=== PATIENT | male | born 1940 | race Caucasian/White ===

== ENCOUNTER 2018-03-24 09:59 | Observation (INO) ==
[2018-03-24] MEDS ORDERED: Isovue-370 500 ML INFUS..BTL IV ONE (10:41)
[2018-03-24] MEDS ORDERED: 0.9 % Sodium Chloride 1,000 ML IVC ONE (10:41)
--- NOTE | 2018-03-24 10:45 | Emergency Department Note ---
Disposition Clinical Impression: Hematuria Qualifiers: Hematuria type: unspecified type Qualified Code(s): R31.9 - Hematuria, unspecified Disposition: Still a Patient Referrals: Charanjit Hong DO [Primary Care Provider] - Forms: ED Satisfaction Letter Time of Disposition: 11:43 Male Urogenital HPI - General Chief complaint: ED Urogenital-Male Stated complaint: "blood in urine" Time Seen by Provider: 03/24/18 10:15 Source: patient Limitations: no limitations Nursing Notes Reviewed: Yes Vital Signs Reviewed: Yes - History of Present Illness HPI Narrative: Alert and oriented nontoxic-appearing 77-year-old male presents for evaluation of hematuria for the past one week or so. He states that it originally started as "tea colored urine". He did see his primary care provider a couple of days ago and was referred to urologist however he states that he cannot be seen for another 3 weeks. The patient states "I do not think I need to wait that long". He does state that the hematuria is intervally improving. He denies any associated fever, chills, nausea, vomiting, abdominal pain, diarrhea, constipation, or blood in stool. Pt Subjective Complaint: other (Hematuria) Onset (ago): day(s) Duration: other (Improving) Improves with: none Worsens with: none Reports: denies other symptoms - Related Data Home Medications Medication Instructions Recorded Confirmed Desonide 15 gm TP BID PRN 01/23/16 01/23/16 Furosemide [Lasix] 80 mg PO DAILY 01/23/16 01/23/16 Gabapentin [Neurontin] 300 mg PO 1-2XD 01/23/16 01/23/16 Lansoprazole [Prevacid] 30 mg PO DAILY 01/23/16 01/23/16 Lisinopril [Zestril] 40 mg PO DAILY 01/23/16 01/23/16 Metoprolol XL (24 HR) Succ [Toprol 25 mg PO DAILY 01/23/16 01/23/16 Xl] Multivitamin [Multivitamins] 1 each PO DAILY 01/23/16 01/23/16 Potassium Chloride [Klor-Con 10 meq PO BID 01/23/16 01/23/16 Sprinkle] Pravastatin Sodium [Pravachol] 40 mg PO DAILY 01/23/16 01/23/16 Tamsulosin HCl [Flomax] 0.4 mg PO DAILY 01/23/16 01/23/16 Tiotropium Br/Olodaterol HCl 2 puff IH BID 01/23/16 01/23/16 [Stiolto Respimat Inhal [place]] [employer] 10 mg PO DAILY 01/23/16 01/23/16 traMADol [Ultram] 50 mg PO Q6HR PRN 01/23/16 01/23/16 Allergies Allergy/AdvReac Type Severity Reaction Status Date / Time ibuprofen [From Motrin] Allergy Swelling Verified 03/24/18 10:04 of Lip/Tongue/Throat Sulfa (Sulfonamide Allergy Anaphylaxis Verified 03/24/18 10:04 Antibiotics) All systems ED: reviewed and negative except as stated. Constitutional: Denies: fever, chills, weakness, weight change Eyes: Denies: eye pain, eye discharge, vision change ENT ED: Denies: ear pain, throat pain, dental pain, hearing loss, epistaxis, congestion, dysphagia Cardiovascular: Denies: chest pain, palpitations, dyspnea on exertion, edema, syncope Respiratory: Denies: cough, dyspnea, wheezes, hemoptysis, stridor Gastrointestinal: Denies: abdominal pain, nausea, vomiting, diarrhea, constipation, hematemesis, melena, hematochezia Genitourinary: Reports: as per HPI, hematuria. Denies: urgency, dysuria, frequency Musculoskeletal: Denies: back pain, neck pain, arthralgia, myalgia Integumentary: Denies: rash, abrasion, lesions Neurological: Denies: headache, weakness, numbness, paresthesias, confusion, abnormal gait, vertigo Psychiatric: Denies: anxiety, depression, suicidal thoughts, homicidal thoughts , auditory hallucinations, visual hallucinations Endocrine: Denies: fatigue Hematological/Lymphatic: Denies: easy bleeding, easy bruising Allergic/Immunologic: Denies: facial swelling, urticaria Past Medical History - Past Medical History Attestation: Yes The following information was validated with the patient. Source: patient, nursing notes reviewed Medical history: Reports: asthma, atrial fibrillation, cancer, COPD, coronary artery disease, GI bleed, hyperlipidemia, hypertension, valvular heart disease Psychiatric history: Reports: no psych history - Social History Smoking Status: Former smoker Smokeless Tobacco Status: No Alcohol use: Reports: none Drug use: Reports: none Physical Exam - General Limitations: no limitations General appearance: alert - Head Head exam: normal inspection - Eye Eye exam: Present: normal appearance. Absent: nystagmus - ENT ENT exam: mucous membranes moist - Neck Neck exam: Present: normal inspection, full ROM, trachea midline - Chest Chest inspection: Present: normal inspection, symmetric chest wall rise - Respiratory Respiratory exam: Present: normal lung sounds bilaterally - Cardiovascular Cardiovascular exam: Present: regular rate, normal rhythm, normal heart sounds - Abdominal Exam Abdominal Exam: Present: soft, Non-Tender, normal bowel sounds - Neurological Exam Neurological exam: Present: alert, oriented X3, normal gait - Psychiatric Psychiatric exam: Present: normal affect, normal mood - Skin Skin exam: Present: warm, dry, intact, normal color Course Vital Signs Temperature 98 F 03/24/18 10:05 Pulse Rate 87 03/24/18 10:05 Respiratory Rate 20 03/24/18 10:05 Blood Pressure 122/78 03/24/18 10:05 O2 Sat by Pulse Oximetry 98 03/24/18 10:05 Temperature 98 F 03/24/18 10:05 Pulse Rate 68 03/24/18 11:39 Respiratory Rate 18 03/24/18 11:39 Blood Pressure 133/68 03/24/18 11:39 O2 Sat by Pulse Oximetry 95 03/24/18 11:39 Oxygen Delivery Oxygen Delivery Room Air Urogenital-Male - Medical Records Medical records reviewed: Yes I reviewed the patient's medical records. - Lab Data Result diagrams: 03/24/18 10:56 03/24/18 10:56 Lab Results 03/24/18 03/24/18 03/24/18 Range/Units 10:56 10:56 10:56 WBC 6.0 (4.3-11.1) K/mcL RBC 4.06 L (4.19-5.50) M/mcL Hgb 13.4 (12.9-16.9) g/dL Hct 39.0 (37.5-50.1) % MCV 96.1 (83.0-100.0) fL MCH 33.0 (28.0-33.3) pg MCHC 34.4 (31.6-35.5) g/dL RDW 13.3 (11.5-14.5) % Plt Count 191 (140-400) K/mcL MPV 10.0 (9.4-12.4) fL Immature Gran % 0.3 (0-4) % Seg Neutrophils % 73.2 % Lymphocytes % 15.0 % Monocytes % 8.0 % Eosinophils % 3.2 % Basophils % 0.3 % Neutrophils # 4.4 (1.6-8.9) K/mcL Lymphocytes # 0.9 (0.6-4.6) K/mcL Monocytes # 0.5 (0.0-1.3) K/mcL Eosinophils # 0.2 (0.0-0.6) K/mcL Basophils # 0.0 (0.0-0.2) K/mcL PT 11.6 (9.4-12.1) Seconds INR 1.1 APTT 34.6 (26.0-36.0) Seconds Sodium 138 (136-145) mEq/L Potassium 4.3 (3.5-5.1) mEq/L Chloride 102 (98-107) mEq/L Carbon Dioxide 29 (23-29) mEq/L BUN 21 (8-23) mg/dL Creatinine 1.82 H (0.70-1.30) mg/dL Est GFR ( Amer) 44 L (> 60) Est GFR (Non-Af Amer) 36 L (> 60) BUN/Creatinine Ratio 12 (6-26) Glucose 110 H (70-105) mg/dL Calculated Osmolality 290 (280-300) Lactic Acid (0.5-2.2) mmol/L Calcium 9.6 (8.6-10.3) mg/dL Total Bilirubin 0.7 (0.3-1.0) mg/dL Direct Bilirubin 0.2 (0.0-0.2) mg/dL Indirect Bilirubin 0.5 (0.0-1.2) mg/dL AST 14 (13-39) Units/L ALT 9 (7-52) Units/L Alkaline Phosphatase 74 (34-104) Units/L Troponin I < 0.03 (< 0.04) ng/mL Serum Total Protein 7.4 (6.4-8.9) g/dL Albumin 4.3 (3.5-5.7) g/dL Globulin 3.1 (2.4-3.5) g/dL Albumin/Globulin Ratio 1.4 (1.1-2.2) Amylase 22 L (29-103) Units/L Lipase 33 (11-82) Units/L Urine Color (Yellow) Urine Clarity (Clear) Urine pH (5.0-8.0) pH Units Ur Specific [place] (1.010-1.025) Urine Protein (Neg-Trace) mg/dL Urine Glucose (UA) (Normal) mg/dL Urine Ketones (Negative) mg/dL Urine Blood (Negative) Urine Nitrite (Negative) Urine Bilirubin (Negative) Urine Urobilinogen (Normal) mg/dL Ur Leukocyte Esterase (Negative) Urine Microscopic RBC (0-3) per hpf Urine Microscopic WBC (0-3) per hpf Ur Squamous Epith Cells (None-Few) per lpf Urine Bacteria (None-Few) per hpf Hyaline Casts (None-Few) per lpf Ur Culture Indicated? (NO) 03/24/18 03/24/18 Range/Units 10:56 11:15 WBC (4.3-11.1) K/mcL RBC (4.19-5.50) M/mcL Hgb (12.9-16.9) g/dL Hct (37.5-50.1) % MCV (83.0-100.0) fL MCH (28.0-33.3) pg MCHC (31.6-35.5) g/dL RDW (11.5-14.5) % Plt Count (140-400) K/mcL MPV (9.4-12.4) fL Immature Gran % (0-4) % Seg Neutrophils % % Lymphocytes % % Monocytes % % Eosinophils % % Basophils % % Neutrophils # (1.6-8.9) K/mcL Lymphocytes # (0.6-4.6) K/mcL Monocytes # (0.0-1.3) K/mcL Eosinophils # (0.0-0.6) K/mcL Basophils # (0.0-0.2) K/mcL PT (9.4-12.1) Seconds INR APTT (26.0-36.0) Seconds Sodium (136-145) mEq/L Potassium (3.5-5.1) mEq/L Chloride (98-107) mEq/L Carbon Dioxide (23-29) mEq/L BUN (8-23) mg/dL Creatinine (0.70-1.30) mg/dL Est GFR ( Amer) (> 60) Est GFR (Non-Af Amer) (> 60) BUN/Creatinine Ratio (6-26) Glucose (70-105) mg/dL Calculated Osmolality (280-300) Lactic Acid 0.9 (0.5-2.2) mmol/L Calcium (8.6-10.3) mg/dL Total Bilirubin (0.3-1.0) mg/dL Direct Bilirubin (0.0-0.2) mg/dL Indirect Bilirubin (0.0-1.2) mg/dL AST (13-39) Units/L ALT (7-52) Units/L Alkaline Phosphatase (34-104) Units/L Troponin I (< 0.04) ng/mL Serum Total Protein (6.4-8.9) g/dL Albumin (3.5-5.7) g/dL Globulin (2.4-3.5) g/dL Albumin/Globulin Ratio (1.1-2.2) Amylase (29-103) Units/L Lipase (11-82) Units/L Urine Color Yellow (Yellow) Urine Clarity Clear (Clear) Urine pH 7.0 (5.0-8.0) pH Units Ur Specific [place] 1.009 L (1.010-1.025) Urine Protein Negative (Neg-Trace) mg/dL Urine Glucose (UA) Normal (Normal) mg/dL Urine Ketones Negative (Negative) mg/dL Urine Blood Large H (Negative) Urine Nitrite Negative (Negative) Urine Bilirubin Negative (Negative) Urine Urobilinogen Normal (Normal) mg/dL Ur Leukocyte Esterase Negative (Negative) Urine Microscopic RBC TNTC H (0-3) per hpf Urine Microscopic WBC 0-3 (0-3) per hpf Ur Squamous Epith Cells Few (None-Few) per lpf Urine Bacteria None Seen (None-Few) per hpf Hyaline Casts None Seen (None-Few) per lpf Ur Culture Indicated? NO (NO) S.B.A.R. - S.B.A.R. Situation: Demographics, MOA Background: Presenting Complaint, Relevant PMH, Meds, & Allergies Assessment: Vital Signs, Course and respsone to treatment, Exam Concerns, Patient/Family Expectation, Pertinant Lab Results, Outstanding Labs Recommendation: Barrier(s) to disposition, Recommendation based on pending studies, treatments, or consults S.B.A.R. Report Given to: Dr. Kassidy Chavez Repor Time: 11:42 Attestation Statement - Attestation Attestation: For this encounter, I have reviewed the ENFORCEMENT MANAGER or PA documentation, treatment plan, and medical decision making; and I have had face to face time with this patient. accepted sign out from the ENFORCEMENT MANAGER, this is 77 year old male with history of hematuria since Friday and has a followup wiht Dr. oconnell on April 17. He states that it is getting wrose, denies abdominal pain, vomitting, nausea, or fevers. He states that he does not have BPH or blood clots and that the urine is more tea colored. PAtinet denies flank pain. I will obtian ABCT and labs for evlauation and then anna consult urology if there is an emergent indications otherwise I will call scheduling to see if we can move his appoitnment sooner.
[2018-03-24 11:13] LABS: Basophils % 0.3 %; Eosinophils # 0.2 K/mcL (0.0-0.6); Eosinophils % 3.2 %; Hemoglobin 13.4 g/dL (12.9-16.9); Immature Granulocytes % 0.3 % (0-4); Lymphocytes # 0.9 K/mcL (0.6-4.6); Mean Corpuscular HGB Conc 34.4 g/dL (31.6-35.5); Mean Corpuscular Volume 96.1 fL (83.0-100.0); Monocytes # 0.5 K/mcL (0.0-1.3); Neutrophils # 4.4 K/mcL (1.6-8.9); Platelet Count 191 K/mcL (140-400); Red Blood Count 4.06 M/mcL (4.19-5.50); Red Cell Distribution Width 13.3 % (11.5-14.5); Segmented Neutrophils % 73.2 %
[2018-03-24 11:20] LABS: INR 1.1; Prothrombin Time 11.6 Seconds (9.4-12.1)
[2018-03-24 11:23] LABS: Activated Partial Thrombo Time 34.6 Seconds (26.0-36.0)
[2018-03-24 11:27] LABS: Bilirubin,Urine Negative (Negative); Blood,Urine Large (Negative); Clarity,Urine Clear (Clear); Color,Urine Yellow (Yellow); Glucose,Urine (UA) Normal (Normal); Ketones,Urine Negative (Negative); Leukocyte Esterase,Urine Negative (Negative); Nitrite,Urine Negative (Negative); Protein,Urine Negative (Neg-Trace); Specific Gravity,Urine 1.009 (1.010-1.025); Urobilinogen,Urine Normal (Normal)
[2018-03-24 11:30] LABS: Bacteria,Urine None Seen per hpf (None-Few); Hyaline Casts,Urine None Seen per lpf (None-Few); RBC,Urine TNTC per hpf (0-3); Squamous Epithelial Cell,Urine Few per lpf (None-Few); WBC,Urine 0-3 per hpf (0-3)
[2018-03-24 11:33] LABS: Troponin I < 0.03 ng/mL (< 0.04)
[2018-03-24 11:34] LABS: Alanine Aminotransferase 9 Units/L (7-52); Albumin 4.3 g/dL (3.5-5.7); Albumin/Globulin Ratio 1.4 (1.1-2.2); Alkaline Phosphatase 74 Units/L (34-104); Amylase 22 Units/L (29-103); Aspartate Amino Transferase 14 Units/L (13-39); BUN/Creatinine Ratio 12 (6-26); Bilirubin,Direct 0.2 mg/dL (0.0-0.2); Bilirubin,Indirect 0.5 mg/dL (0.0-1.2); Bilirubin,Total 0.7 mg/dL (0.3-1.0); Blood Urea Nitrogen 21 mg/dL (8-23); Calcium 9.6 mg/dL (8.6-10.3); Carbon Dioxide 29 mEq/L (23-29); Chloride 102 mEq/L (98-107); Globulin 3.1 g/dL (2.4-3.5); Glucose 110 mg/dL (70-105); Lipase 33 Units/L (11-82); Osmolality,Calculated 290 (280-300); Potassium 4.3 mEq/L (3.5-5.1); Sodium 138 mEq/L (136-145); Total Protein 7.4 g/dL (6.4-8.9); eGFR For African Americans 44 (> 60); eGFR For Non-African Americans 36 (> 60)
[2018-03-24] MEDS ORDERED: traMADol 50 MG TABLET PO PRN (13:06)
[2018-03-24] MEDS ORDERED: Naloxone 0.4 MG/ML INJ IVP PRN (13:08)
--- NOTE | 2018-03-24 13:13 | Internal Med History&Physical ---
Date of Encounter: 03/24/18 Time of Encounter: 13:10 Internal Medicine - H&P: HPI Chief complaint: Gross hematuria History of present illness: Mr. Brock is a 77 year old male with a history of orthopedic surgery with 2. Replacement, spinal surgeries with rods and screws, CABG at [facility] a few years ago, status post pacer in [place] who presents with gross hematuria since Friday. He denies having any prior episodes of hematuria but on Friday developed brown urine output without clots. Visually he described it looking like sweet tea. He had persistent hematuria output that is painless since Friday but his urine has started to clear up this morning. He denies any systemic symptoms or any lower urinary tract symptoms to suggest an active infection that is precipitating his presentation. CT/CT abd pelvis wo no iv no oral IMPRESSION: 2 x 3 mm stone distal left ureter 1-2 cm proximal to the left UVJ. However, there is no significant hydronephrosis or hydroureter. At least 3 small additional nonobstructing stones noted within the left kidney. 4.8 cm pedunculated cyst lower pole right kidney slightly increased in size from 2010 exam. Mild distal small bowel distention with some air-fluid levels. This may represent nonobstructive ileus possibly related to left ureteral stone. Enteritis cannot be excluded. Past Med Surg Social Fam HX - Past Medical History Medical history: asthma, atrial fibrillation, cancer, COPD, coronary artery disease, GI bleed, hyperlipidemia, hypertension, valvular heart disease Additional medical history: SKIN CA. LUMBAR STENOSIS. CAROTID STENOSIS Psychiatric history: no psych history - Past Surgical History Additional surgical history: BILAT HIP SURGERY. BACK SURGERY X3. CARPEL TUNNEL. MITRAL VALVE REPAIR - Social History Smoking Status: Former smoker Smokeless Tobacco Status: No Alcohol use: none Drug use: none Internal Medicine - H&P: Meds Furosemide [Lasix] 80 mg PO DAILY 01/23/16 [History] Lansoprazole [Prevacid] 30 mg PO DAILY 01/23/16 [History] Metoprolol XL (24 HR) Succ [Toprol Xl] 25 mg PO BID 01/23/16 [History] Multivitamin [Multivitamins] 1 each PO DAILY 01/23/16 [History] Potassium Chloride [Klor-Con Sprinkle] 10 meq PO BID 01/23/16 [History] Tamsulosin HCl [Flomax] 0.4 mg PO DAILY 01/23/16 [History] traMADol [Ultram] 50 mg PO Q6HR PRN 01/23/16 [History] Albuterol Sulfate [Proair Hfa] 2 puff IH Q4-6H PRN 03/24/18 [History] Atorvastatin [Lipitor] 10 mg PO HS 03/24/18 [History] Metoprolol Succinate [Toprol Xl] 50 mg PO BID 03/24/18 [History] 3 Allergy/AdvReac Type Severity Reaction Status Date / Time ibuprofen [From Motrin] Allergy Swelling Verified 03/24/18 10:04 of Lip/Tongue/Throat Sulfa (Sulfonamide Allergy Anaphylaxis Verified 03/24/18 10:04 Antibiotics) All Systems PM: A 10-system review of systems was performed and is negative for pertinent findings except as documented above in the HPI. Review of systems: ROS 14 point review of systems reviewed as best as possible given presentation. Pertinent positive or negative as per HPI or otherwise reviewed as negative - Constitutional Vitals: Temp Pulse Resp BP Pulse Ox 98 F 107 18 153/78 97 03/24/18 10:05 03/24/18 12:43 03/24/18 12:43 03/24/18 12:43 03/24/18 12:43 Exam: General - AAO x 3 Psych - Appropriate affect/speech. No agitation Eyes - LUCILA. Eye lids intact. No scleral icterus Neuro - No gross peripheral or central neuro deficits on inspection Heart - Sinus. RRR. S1 and S2 present. No added HS/murmurs appreciated. No elevated JVD appreciated. Lung - Adequate air entry b/l, No crackles/wheezes appreciated GI - Soft, non-tender. No hepatosplenomegaly/ascites. BS+ - No CVA/suprapubic tenderness or palpable bladder distension Skin - Intact. No rash/petechiae/ecchymosis. Warm extremities Internal Med - H&P Results - Labs CBC & Chem 7: 03/24/18 10:56 03/24/18 10:56 Labs: Short CBC 03/24/18 Range/Units 10:56 WBC 6.0 (4.3-11.1) K/mcL Hgb 13.4 (12.9-16.9) g/dL Hct 39.0 (37.5-50.1) % Plt Count 191 (140-400) K/mcL Neutrophils # 4.4 (1.6-8.9) K/mcL BMP 03/24/18 10:56 Sodium 138 Potassium 4.3 Chloride 102 Carbon Dioxide 29 BUN 21 Creatinine 1.82 H Glucose 110 H Calcium 9.6 Cardiac Enzymes 03/24/18 Range/Units 10:56 Troponin I < 0.03 (< 0.04) ng/mL Liver Function 03/24/18 Range/Units 10:56 Total Bilirubin 0.7 (0.3-1.0) mg/dL Direct Bilirubin 0.2 (0.0-0.2) mg/dL AST 14 (13-39) Units/L ALT 9 (7-52) Units/L Alkaline Phosphatase 74 (34-104) Units/L Albumin 4.3 (3.5-5.7) g/dL Urine 03/24/18 Range/Units 11:15 Urine Color Yellow (Yellow) Urine Clarity Clear (Clear) Urine pH 7.0 (5.0-8.0) pH Units Ur Specific [place] 1.009 L (1.010-1.025) Urine Protein Negative (Neg-Trace) mg/dL Urine Glucose (UA) Normal (Normal) mg/dL - Impressions ITS Impressions Abdomen/Pelvis CT 03/24/18 10:41 IMPRESSION: 2 x 3 mm stone distal left ureter 1-2 cm proximal to the left UVJ. However, there is no significant hydronephrosis or hydroureter. At least 3 small additional nonobstructing stones noted within the left kidney. 4.8 cm pedunculated cyst lower pole right kidney slightly increased in size from 2010 exam. Mild distal small bowel distention with some air-fluid levels. This may represent nonobstructive ileus possibly related to left ureteral stone. Enteritis cannot be excluded. D/ / Ash Frederick MD / Ash Frederick MD Interpreting Provider: Ash Frederick MD - Assessment and plan (1) Hematuria Current Visit: Yes Status: Acute Assessment and plan: ED discussed case with urology Dr. Chang who will consult Urinalysis looks bland with no evidence of infection CT scan with incidental small stones. Doubtful that this is symptomatic. Noted renal cyst of right kidney that has slightly increased in size Further management pending neurology evaluation. Possible interval invasive testing No overt clots to suggest need for CBI. 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 (4) CKD (chronic kidney disease) stage 4, GFR 15-29 ml/min Current Visit: Yes Status: Acute Assessment and plan: Continue to trend creatinine - Time Spent With Patient Total time spent is greater than 50% in coordination of care (as documented) at patient's floor/unit and/or counseling patient:
--- NOTE | 2018-03-24 18:06 | Urology - Consult Note ---
Date of Encounter: 03/24/18 Time of Encounter: 18:04 - Assessment and Plan (1) Ureteral stone Current Visit: Yes Status: Acute Assessment and plan: 77 year old man with a distal left ureteral stone and an elevated creatinine. I reviewed his CT scan. The stone is small and is distal. I will see how his creatinine does overnight. If his renal function improves, we can follow him conservatively. However, if he still has elevated creatinine, then I recommend to proceed with a left ureteroscopy, laser lithotripsy, and stent placement. He was informed of the risks of the procedure including but not limited to bleeding, infection, injury to other structures, need for further procedures, stent irritation, incomplete fragmentation, ureteral perforation, need for nephrostomy tube, need for open repair, risks unforeseen, and the risk of anesthesia. He is willing to proceed. (2) Hematuria Current Visit: Yes Status: Acute Assessment and plan: 77 year old man with intermittent gross hematuria. This may be related to his stone, but I would still recommend cystoscopy for further evaulation. Depending upon how he does with his stone, we can perform the cystoscopy at the time of surgery or do it as an outpatient. We will see what his labs look like tomorrow. Keep patient NPO past midnight. Qualifiers: Hematuria type: gross Qualified Code(s): R31.0 - Gross hematuria Urology CN:HPI Consult date: 03/24/18 Reason for consult Urology: Other (left ureteral stone) History of present illness: 77-year-old man presents with a history of gross hematuria. This has been going on for a few days. His urine has been intermittently bloody. He came to the emergency department. He was noted to have an elevated creatinine. A CT scan was performed which showed a distal left ureteral stone. He has been admitted for further care. He denies any history of nephrolithiasis. He denies any flank pain, fevers, or chills. He feels that his urine is clearing up, but he is still having occasional hematuria. Past Med Surg Social Fam HX - Past Medical History Medical history: asthma, atrial fibrillation, cancer, COPD, coronary artery disease, GI bleed, hyperlipidemia, hypertension, valvular heart disease Additional medical history: SKIN CA. LUMBAR STENOSIS. CAROTID STENOSIS Psychiatric history: no psych history - Past Surgical History Additional surgical history: BILAT HIP SURGERY. BACK SURGERY X3. CARPEL TUNNEL. MITRAL VALVE REPAIR - Social History Smoking Status: Former smoker Smokeless Tobacco Status: No Alcohol use: none Drug use: none Medications and Allergies Furosemide [Lasix] 80 mg PO DAILY 01/23/16 [History] Lansoprazole [Prevacid] 30 mg PO DAILY 01/23/16 [History] Metoprolol XL (24 HR) Succ [Toprol Xl] 25 mg PO BID 01/23/16 [History] Multivitamin [Multivitamins] 1 each PO DAILY 01/23/16 [History] Potassium Chloride [Klor-Con Sprinkle] 10 meq PO BID 01/23/16 [History] Tamsulosin HCl [Flomax] 0.4 mg PO DAILY 01/23/16 [History] traMADol [Ultram] 50 mg PO Q6HR PRN 01/23/16 [History] Albuterol Sulfate [Proair Hfa] 2 puff IH Q4-6H PRN 03/24/18 [History] Atorvastatin [Lipitor] 10 mg PO HS 03/24/18 [History] Metoprolol Succinate [Toprol Xl] 50 mg PO BID 03/24/18 [History] 3 Allergy/AdvReac Type Severity Reaction Status Date / Time ibuprofen [From Motrin] Allergy Swelling Verified 03/24/18 10:04 of Lip/Tongue/Throat Sulfa (Sulfonamide Allergy Anaphylaxis Verified 03/24/18 10:04 Antibiotics) Review of Systems - Constitutional no chills, no fever(s) - EENT Nose, mouth and throat: no dizziness - Cardiovascular no chest pain - Respiratory no dyspnea - Gastrointestinal no nausea, no vomiting - Genitourinary hematuria, no flank pain - Musculoskeletal no back pain - Integumentary no erythema, no rash - Neurological no weakness - Psychiatric no suicidal ideation - Hematologic/Lymphatic no easy bleeding - Allergic/Immunologic no wheezing Exam Initial Vital Signs Temp Pulse Resp BP Pulse Ox 98 F 87 20 122/78 98 03/24/18 10:05 03/24/18 10:05 03/24/18 10:05 03/24/18 10:05 03/24/18 10:05 - General physical appearance Present: well developed, well nourished, no distress - Eyes Absent: icteric - ENT Present: normal nares - Neck Present: trachea midline - Respiratory Present: normal respiratory effort - Cardiovascular Cardiovascular exam IM: RRR - Abdomen Abdomen: Present: soft - Integumentary Present: no rash - Neurologic Present: normal coordination - Musculoskeletal Present: normal gait Urology Results - Labs 03/24/18 10:56 03/24/18 10:56 Abnormal lab results RBC 4.06 M/mcL (4.19-5.50) L 03/24/18 10:56 Creatinine 1.82 mg/dL (0.70-1.30) H 03/24/18 10:56 Est GFR ( Amer) 44 (> 60) L 03/24/18 10:56 Est GFR (Non-Af Amer) 36 (> 60) L 03/24/18 10:56 Glucose 110 mg/dL (70-105) H 03/24/18 10:56 Amylase 22 Units/L (29-103) L 03/24/18 10:56 Ur Specific [place] 1.009 (1.010-1.025) L 03/24/18 11:15 Urine Blood Large (Negative) H 03/24/18 11:15 Urine Microscopic RBC TNTC per hpf (0-3) H 03/24/18 11:15 All other labs normal. - Imaging CT scan - abdomen: report reviewed, image reviewed CT scan - pelvis: report reviewed, image reviewed Consult Discharge Plan - Plan Referrals: Charanjit Hong DO [Primary Care Provider] -
--- NOTE | 2018-03-24 21:35 | Anesthesia Evaluation PreOp ---
Date of Encounter: 03/24/18 Time of Encounter: 21:30 - Past History Planned Operation: Left ureteroscopic stone extraction Cardiac History: HTN, Hyperlipidemia, Arrhythmia (afib), Cardiac Surgery (s/p mitral valve repair), Pacemaker/ICD (AICD 2015), Other (Ischemic Cardiomyopathy with EF 25%) Pulmonary History: Former smoker, Asthma, COPD Other Medical History: Renal (gross hematuria, elevated cr) Anesthesia History: No Prior Anesthetic Complications, Past Anesthesia (isa hips , back surgery x 3, carpal tunnel, mitral valve repair) Alcohol Use: none Drug use: none Medications and Allergies Furosemide [Lasix] 80 mg PO DAILY 01/23/16 [History] Lansoprazole [Prevacid] 30 mg PO DAILY 01/23/16 [History] Metoprolol XL (24 HR) Succ [Toprol Xl] 25 mg PO BID 01/23/16 [History] Multivitamin [Multivitamins] 1 each PO DAILY 01/23/16 [History] Potassium Chloride [Klor-Con Sprinkle] 10 meq PO BID 01/23/16 [History] Tamsulosin HCl [Flomax] 0.4 mg PO DAILY 01/23/16 [History] traMADol [Ultram] 50 mg PO Q6HR PRN 01/23/16 [History] Albuterol Sulfate [Proair Hfa] 2 puff IH Q4-6H PRN 03/24/18 [History] Atorvastatin [Lipitor] 10 mg PO HS 03/24/18 [History] Metoprolol Succinate [Toprol Xl] 50 mg PO BID 03/24/18 [History] 3 Allergy/AdvReac Type Severity Reaction Status Date / Time ibuprofen [From Motrin] Allergy Swelling Verified 03/24/18 10:04 of Lip/Tongue/Throat Sulfa (Sulfonamide Allergy Anaphylaxis Verified 03/24/18 10:04 Antibiotics) - Meds/Allergy Pre-op Review Medications Reviewed: Yes Allergies Reviewed: Yes Beta Blockers on Current Med List: Yes If Beta Blockers taken, Date/Time (Last Dose taken): 21:49 03/24/18 Anesthesia Results - Labs 03/24/18 10:56 03/24/18 10:56 Laboratory Tests 03/24/18 10:56 PT 11.6 INR 1.1 APTT 34.6 - Imaging EKG: report reviewed (afib in 2016, will need a more recent ekg) Additional studies: ECHO 2016 Impressions: Mildly dilated left ventricle. Severely decreased LV systolic function, LVEF 25%. There is diffuse hypokinesis with dyskinetic motion of the IV septum. Mild right ventricular hypokinesis. Moderately dilated left atrium. Mildly dilated right atrium. History of mitral valve repair. No mitral stenosis. Mild mitral regurgitation. No evidence of pulmonary hypertension. RVSP = 34 mmHg (upper limits of normal). Anesthesia Exam Vital Signs/O2 Sat, Most Current Temp Pulse Resp BP Pulse Ox 97.5 F L 70 16 129/63 96 03/24/18 19:57 03/24/18 19:57 03/24/18 19:57 03/24/18 19:57 03/24/18 19:57 Weight: 89kg NPO (# of Hours): >8 - HEENT Pupil (Motor): Pupils equal, EOMI Mallampati: III Teeth: Poor dentition Oral Opening: Greater than 3 - CLEANER TOUCH UP WORKER LOC: Oriented CLE[employer]ER TOUCH UP WORKER Motor: Normal RUE, Normal LUE, Normal RLE, Normal LLE, Normal Face CLE[employer]ER TOUCH UP WORKER Sensory: Normal: RUE, LUE, RLE, LLE, Face - Cardiac Rhythm: Irregular - Pulmonary Breath Sounds: bilateral Clear Respiratory Effort: Symmetrical Anesthesia Assess/Plan ASA Score: 4 (Ischemic cardiomyopathy with EF 25%, s/p AICD, HTN, hyperlipidemia , COPD) Modified Nay Scale for Level of Consciousness: Cooperative, oriented, and tranquil Anesthetic Plan: General Monitoring Plan: Standard Monitors, A-Line (possible) Recovery Plan: PACU
[2018-03-24] MEDS: Metoprolol XL (24 HR) Succ 50 MG TAB.ER.24H PO SCH (21:49)
[2018-03-25 06:59] LABS: Basophils % 0.4 %; Eosinophils # 0.2 K/mcL (0.0-0.6); Eosinophils % 4.1 %; Hematocrit 36.8 % (37.5-50.1); Hemoglobin 12.5 g/dL (12.9-16.9); Immature Granulocytes % 0.2 % (0-4); Lymphocytes # 0.5 K/mcL (0.6-4.6); Lymphocytes % 9.6 %; Mean Corpuscular Hemoglobin 32.5 pg (28.0-33.3); Mean Corpuscular Volume 95.6 fL (83.0-100.0); Mean Platelet Volume 9.8 fL (9.4-12.4); Monocytes # 0.4 K/mcL (0.0-1.3); Monocytes % 7.8 %; Neutrophils # 4.2 K/mcL (1.6-8.9); Platelet Count 176 K/mcL (140-400); Red Blood Count 3.85 M/mcL (4.19-5.50); Red Cell Distribution Width 13.6 % (11.5-14.5); Segmented Neutrophils % 77.9 %
--- NOTE | 2018-03-25 07:03 | Urology Progress Note ---
Date of Encounter: 03/25/18 Time of Encounter: 07:00 - Assessment and Plan (1) Ureteral stone Current Visit: Yes Status: Acute Assessment and plan: 77 year old man with a distal left ureteral stone. He is not having any pain at this time. Urine is clearing. 1. Await results of labs. If creatinine stable or improved, we can cancel surgery today and he can be discharged home. If creatinine has risen, then I would proceed with the left ureteroscopic stone extraction with stent placement. 2. I can perform a cystoscopy as an outpatient if surgery is cancelled. 3. will follow along. (2) Hematuria Current Visit: Yes Status: Acute Qualifiers: Hematuria type: gross Qualified Code(s): R31.0 - Gross hematuria Progress Note Narrative: Doing well today. Urine is clear. No flank pain. Labs are not back yet. Objective Initial Vital Signs Temp Pulse Resp BP Pulse Ox 98 F 87 20 122/78 98 03/24/18 10:05 03/24/18 10:05 03/24/18 10:05 03/24/18 10:05 03/24/18 10:05 - General physical appearance Present: well developed, well nourished, no distress - Respiratory Absent: normal respiratory effort - Abdomen Present: soft - Integumentary Present: no rash - Labs 03/24/18 10:56 03/24/18 10:56 Consult Discharge Plan - Plan Referrals: Charanjit Hong DO [Primary Care Provider] -
[2018-03-25 07:13] LABS: BUN/Creatinine Ratio 19 (6-26); Blood Urea Nitrogen 23 mg/dL (8-23); Calcium 9.7 mg/dL (8.6-10.3); Carbon Dioxide 26 mEq/L (23-29); Chloride 106 mEq/L (98-107); Glucose 114 mg/dL (70-105); Osmolality,Calculated 293 (280-300); Potassium 4.4 mEq/L (3.5-5.1); Sodium 139 mEq/L (136-145); eGFR For African Americans > 60 (> 60); eGFR For Non-African Americans 57 (> 60)
[2018-03-25 07:33] VITALS: BP 162/74
--- NOTE | 2018-03-25 08:38 | Discharge Summary ---
- NOTES TO OUTPATIENT PROVIDER Notes to Outpatient Provider: Routine hospital follow-up within 1-2 weeks Date of Encounter: 03/25/18 Time of Encounter: 08:40 - Discharge Diagnosis (1) Hematuria Priority: Primary Status: Acute Assessment and Plan: presented with hematuria and that started 5 days prior to arrival. ABD CT showed left distal ureter stone but no significant hydronephrosis or hydroureter. Evaluated by urology who initially recommended left ureteroscopy, laser lithotripsy, and stent placement however symptoms resolved without intervention. No hematuria at time of discharge. He will need to follow-up with urology outpatient for cystoscopy. Qualifiers: Hematuria type: gross Qualified Code(s): R31.0 - Gross hematuria (2) CKD (chronic kidney disease) stage 4, GFR 15-29 ml/min Priority: Primary Status: Acute Assessment and Plan: per hx. Renal function slightly worse than baseline on arrival and resolved without intervention. Follow-up with PCP outpatient. 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 S/p PPM (4) CHF (congestive heart failure), NYHA class III Priority: Primary Status: Chronic Assessment and Plan: per hx. Appeared euvolemic. Cont home diuretics Qualifiers: Congestive heart failure type: systolic Congestive heart failure chronicity : chronic Qualified Code(s): I50.22 - Chronic systolic (congestive) heart failure Hospital course: Please see assessment and plan for Hospital course Discharge discussed with: patient (Seen and examined at bedside. Patient is new to me, information obtained from chart review and patient report. Sitting up on edge of bed, says he feels better and would likle to go home today. Hematuria resolved. No abdominal pain. He is aware for need for outpatient cystoscopy. Advised to return to ER if hematuria recurs.) - Time Spent with Patient Total time spent providing and/or coordinating discharge services: - Discharge Medications Home Medications: Furosemide [Lasix] 80 mg PO DAILY 01/23/16 [History] Lansoprazole [Prevacid] 30 mg PO DAILY 01/23/16 [History] Metoprolol XL (24 HR) Succ [Toprol Xl] 25 mg PO BID 01/23/16 [History] Multivitamin [Multivitamins] 1 each PO DAILY 01/23/16 [History] Potassium Chloride [Klor-Con Sprinkle] 10 meq PO BID 01/23/16 [History] Tamsulosin HCl [Flomax] 0.4 mg PO DAILY 01/23/16 [History] traMADol [Ultram] 50 mg PO Q6HR PRN 01/23/16 [History] Albuterol Sulfate [Proair Hfa] 2 puff IH Q4-6H PRN 03/24/18 [History] Atorvastatin [Lipitor] 10 mg PO HS 03/24/18 [History] Metoprolol Succinate [Toprol Xl] 50 mg PO BID 03/24/18 [History] Allergies/Adverse Reactions: 3 Allergy/AdvReac Type Severity Reaction Status Date / Time ibuprofen [From Motrin] Allergy Swelling Verified 03/24/18 10:04 of Lip/Tongue/Throat Sulfa (Sulfonamide Allergy Anaphylaxis Verified 03/24/18 10:04 Antibiotics) Date of admission: 03/24/18 13:57 Primary care physician: Charanjit Hong Discharging clinician: Isa Escobar Anticipated date of discharge: 03/25/18 - Constitutional Vitals: Temp Pulse Resp BP Pulse Ox 98.2 F 66 18 162/74 95 03/25/18 07:32 03/25/18 07:32 03/25/18 07:32 03/25/18 07:32 03/25/18 07:32 General appearance: Present: A&O X 3, pleasant, no acute distress - Head Head exam: Present: atraumatic, normocephalic - Eye Eye exam: Present: PERRL, conjuntiva pink, sclera anicteric Pupils: Present: PERRL - Neck Neck exam general surgery: Present: supple, trachea midline. Absent: lymphadenopathy - Respiratory Respiratory exam: Present: CTAB. Absent: accessory muscle use, rales, rhonchi, wheezes - Cardiovascular Cardiovascular exam: Present: RRR, +S1, +S2. Absent: diastolic murmur, gallop, rubs, systolic murmur - GI/Abdominal GI/Abdominal exam: Present: normal bowel sounds, soft, no peritoneal signs. Absent: distended, tenderness - Extremities Exam Extremities exam: Present: warm, radial pulses palpable and symmetrical. Absent : calf tenderness, cyanotic, pedal edema - Neurological Exam Neurological exam: Present: CN II-XII intact, oriented X3, no focal deficits. Absent: pronater drift, facial droop, speech deficit - Skin Skin exam: Present: dry, intact - Patient Status Disposition: Home, Self-Care Condition: Good Functional capacity at discharge: independent ambulation Overall status at discharge: patient is back to baseline - Discharge Instructions Instructions: Acute Hematuria (DC), Cystoscopy (DC) Follow Up With: Charanjit Hong DO [Primary Care Provider] - (Please call for follow-up appt in 1-2 weeks ) Facundo Chang MD [Partnered Physician] - (Please call Dr. Chang's office if you have not heard from them within one week to schedule a cystoscopy) - Diet and Activity Activity: increase activity as tolerated Diet: advance to your usual diet
[2018-03-25] MEDS: Metoprolol XL (24 HR) Succ 50 MG TAB.ER.24H PO SCH (08:40)
[2018-03-25] MEDS ORDERED: Furosemide 40 MG TABLET PO SCH (09:00)
--- NOTE | 2018-03-25 19:38 | Electrocardiograph Report ---
[place] [id number] Test Date: 2018-03-24 Pat Name: Santy Brock Department: 113 Room: 3B Gender: M Automatic Buffer: DORIAN : 1940 Requested By: Xander Soliz Order Number: [id number] Reading MD: Clinton Ardon Measurements Intervals [place] Rate: 69 P: [place]: 0 QRS: 232 QRSD: 148 T: 61 QT: 469 QTc: 488 Interpretive Statements ELECTRONIC VENTRICULAR PACEMAKER, UNCERTAIN UNDERLYING RHYTHM Electronically Signed On 03-25-2018 19:36:29 EDT by Clinton Ardon
== END 2018-03-25 10:20 | disposition home or self-care (01) ==
LOC: 3BNU 09:59 → EMEROO 09:59 → 3BNU 14:19
PROVIDERS: ADMIT Family Medicine; ATTEND Family Medicine

== ENCOUNTER 2021-05-08 13:17 | Inpatient (IN) ==
[2021-05-08] MEDS ORDERED: CeFAZolin Syr 2,000MG/20 ML 2,000 MG/20 ML SYRINGE IVPB ONE (13:54)
[2021-05-08] MEDS ORDERED: Ringers Solution, Lactated 1,000 ML IVC SCH (14:00)
[2021-05-08] MEDS ORDERED: Acetaminophen IV 1,000 MG/100 ML BAG IVPB ONE (14:27)
[2021-05-08] MEDS ORDERED: Famotidine 20 MG/2 ML VIAL IVP ONE (14:27)
[2021-05-08] MEDS ORDERED: Ondansetron 4 MG/2 ML VIAL IVP PRN ×2 (14:28→21:10)
[2021-05-08] MEDS ORDERED: *HR* Labetalol 20 MG/4 ML SYRINGE IVP PRN ×2 (14:28→21:10)
[2021-05-08] MEDS ORDERED: Morphine Sulfate 2 MG/ML SYRINGE IVP PRN (14:28)
[2021-05-08] MEDS ORDERED: 0.9 % Sodium Chloride 500 ML IVC SCH (14:30)
[2021-05-08] MEDS ORDERED: Lidocaine -MPF 2% 2 ML VIAL ONE (14:40)
[2021-05-08] MEDS ORDERED: *HR* Propofol 200 MG/20 ML VIAL IVP ONE (14:40)
[2021-05-08] MEDS ORDERED: *HR* Rocuronium Bromide 50 MG/5 ML VIAL ONE ×2 (14:40→17:59)
[2021-05-08] MEDS ORDERED: *HR* FentaNYL (PF) 100 MCG/2 ML VIAL ONE (14:40)
[2021-05-08] MEDS ORDERED: Ondansetron 4 MG/2 ML VIAL ONE (14:40)
[2021-05-08] MEDS ORDERED: Lidocaine -MPF 4% 5 ML AMPUL ONE (14:46)
[2021-05-08] MEDS ORDERED: *HR* Heparin 5,000 UNIT/ML VIAL ONE (14:47)
[2021-05-08] MEDS ORDERED: Protamine Sulfate 50 MG/5 ML VIAL IVP ONE (15:33)
[2021-05-08] MEDS ORDERED: ceFAZolin 1,000 MG, Sodium Chloride IRRigation 1,000 ML IR ONE (15:40)
[2021-05-08] MEDS ORDERED: Heparin 1,000 UNITS/500 mL 1,500 ML ONE (15:45)
[2021-05-08] MEDS ORDERED: Heparin 1,000 UNITS/500 mL 500 ML ONE (15:49)
[2021-05-08] MEDS ORDERED: *HR* OxyCODONE Immed Rel 5 MG TABLET PO PRN (21:10)
[2021-05-08] MEDS ORDERED: Naloxone 0.4 MG/ML INJ IVP PRN (21:10)
[2021-05-08] MEDS ORDERED: Acetaminophen 325 MG TABLET PO PRN (21:10)
[2021-05-08] MEDS ORDERED: *HR* HYDROcodone/Acet 5/325 mg TABLET PO PRN (21:10)
[2021-05-08] MEDS ORDERED: Furosemide 40 MG TABLET PO SCH (21:30)
[2021-05-08] MEDS: Metoprolol XL (24 HR) Succ 50 MG TAB.ER.24H PO SCH (21:41)
[2021-05-08] MEDS: CeFAZolin 2 GM/120 ML BAG IVPB SCH (23:20)
[2021-05-09 01:21] LABS: Basophils % 0.2 %; Eosinophils % 0.1 %; Hematocrit 32.5 % (37.5-50.1); Hemoglobin 10.6 g/dL (12.9-16.9); Immature Granulocytes % 0.3 % (0-4); Lymphocytes # 0.5 K/mcL (0.6-4.6); Lymphocytes % 5.6 %; Mean Corpuscular HGB Conc 32.6 g/dL (31.6-35.5); Mean Corpuscular Hemoglobin 33.2 pg (28.0-33.3); Mean Corpuscular Volume 101.9 fL (83.0-100.0); Mean Platelet Volume 9.8 fL (9.4-12.4); Monocytes # 0.1 K/mcL (0.0-1.3); Monocytes % 1.5 %; Neutrophils # 8.1 K/mcL (1.6-8.9); Platelet Count 158 K/mcL (140-400); Red Blood Count 3.19 M/mcL (4.19-5.50); Red Cell Distribution Width 12.6 % (11.5-14.5); Segmented Neutrophils % 92.3 %; White Blood Count 8.8 K/mcL (4.3-11.1)
[2021-05-09 01:35] LABS: Calcium 8.8 mg/dL (8.6-10.3); Potassium 4.3 mEq/L (3.5-5.1)
[2021-05-09 07:06] VITALS: BP 97/41; PULSE 65; TEMP 98.4; O2SAT 96
[2021-05-09] MEDS: CeFAZolin 2 GM/120 ML BAG IVPB SCH (08:31)
[2021-05-09] MEDS: Metoprolol XL (24 HR) Succ 50 MG TAB.ER.24H PO SCH (08:32)
[2021-05-09] MEDS ORDERED: Aspirin Enteric Coated 81 MG Tablet PO SCH (09:00)
[2021-05-09] MEDS ORDERED: lisinopriL 20 MG TABLET PO SCH (09:00)
[2021-05-09] MEDS ORDERED: hydroCHLOROthiazide 25 MG TABLET PO SCH (09:00)
== END 2021-05-09 09:58 | disposition home or self-care (01) | DRG 38 ==
LOC: SAMDAY 13:17 → 2NNU 21:14
PROVIDERS: ADMIT Surgery Vascular Surgery; ATTEND Surgery Vascular Surgery

== ENCOUNTER 2021-10-28 11:00 | Observation (INO) ==
[2021-10-28] MEDS ORDERED: 0.9 % Sodium Chloride 500 ML IVC ONE (11:39)
[2021-10-28 12:15] LABS: Basophils % 0.1 %; Hematocrit 31.3 % (37.5-50.1); Hemoglobin 9.5 g/dL (12.9-16.9); Immature Granulocytes % 0.8 % (0-4); Lymphocytes # 0.6 K/mcL (0.6-4.6); Lymphocytes % 3.1 %; Mean Corpuscular HGB Conc 30.4 g/dL (31.6-35.5); Mean Corpuscular Hemoglobin 28.2 pg (28.0-33.3); Mean Corpuscular Volume 92.9 fL (83.0-100.0); Mean Platelet Volume 9.7 fL (9.4-12.4); Monocytes # 1.8 K/mcL (0.0-1.3); Neutrophils # 17.6 K/mcL (1.6-8.9); Platelet Count 257 K/mcL (140-400); Red Blood Count 3.37 M/mcL (4.19-5.50); Red Cell Distribution Width 15.1 % (11.5-14.5); White Blood Count 20.2 K/mcL (4.3-11.1)
[2021-10-28 12:37] LABS: Calcium 9.1 mg/dL (8.6-10.3); Potassium 4.1 mEq/L (3.5-5.1); Troponin I 0.03 ng/mL (< 0.04)
[2021-10-28] MEDS ORDERED: 0.9 % Sodium Chloride 1,000 ML IVC ONE (12:40)
[2021-10-28 12:50] LABS: Influenza A PCR Negative (Negative); Influenza B PCR Negative (Negative); Resp. Syncytial Virus PCR Negative (Negative)
[2021-10-28 12:51] LABS: SARS-CoV-2 by PCR (In House) Negative (Negative)
[2021-10-28 13:46] LABS: Bilirubin,Urine Negative (Negative); Blood,Urine Moderate (Negative); Clarity,Urine Turbid (Clear); Color,Urine Yellow (Yellow); Glucose,Urine (UA) Normal (Normal); Hyaline Casts,Urine Moderate per lpf (None Seen); Ketones,Urine Negative (Negative); Leukocyte Esterase,Urine Large (Negative); Mucus,Urine Few per lpf (None-Few); Nitrite,Urine Negative (Negative); PH,Urine 5.5 pH Units (5.0-8.0); Protein,Urine 70 mg/dL (Neg-Trace); RBC,Urine 30-50 per hpf (0-3); Specific Gravity,Urine 1.021 (1.010-1.025); Urobilinogen,Urine Normal (Normal); WBC,Urine TNTC per hpf (0-3)
[2021-10-28] MEDS ORDERED: cefTRIAXone 1,000 MG in 0.9 % Sodium Chloride Mini Bag 100 ML IVPB ONE (14:02)
[2021-10-28] MEDS ORDERED: Naloxone 0.4 MG/ML INJ IVP PRN (14:52)
[2021-10-28] MEDS ORDERED: Melatonin 3 MG TABLET PO PRN (14:52)
[2021-10-28] MEDS ORDERED: Ondansetron ODT 4 MG TAB.RAPDIS SL PRN (14:52)
[2021-10-28] MEDS ORDERED: Ringers Solution, Lactated 1,000 ML IVC SCH (15:00)
[2021-10-28] MEDS: *HR* Heparin 5,000 UNIT/ML VIAL SQ SCH (22:17)
[2021-10-29] MEDS: Acetaminophen 325 MG TABLET PO PRN ×2 (00:44→21:04)
[2021-10-29 02:57] LABS: Hemoglobin 8.1 g/dL (12.9-16.9); Mean Corpuscular HGB Conc 31.2 g/dL (31.6-35.5); Mean Corpuscular Hemoglobin 28.9 pg (28.0-33.3); Mean Corpuscular Volume 92.9 fL (83.0-100.0); Platelet Count 209 K/mcL (140-400); Red Cell Distribution Width 15.3 % (11.5-14.5); White Blood Count 17.1 K/mcL (4.3-11.1)
[2021-10-29 03:05] LABS: INR 1.3; Prothrombin Time 14.2 Seconds (9.4-12.1)
[2021-10-29 03:08] LABS: Activated Partial Thrombo Time 32.2 Seconds (26.0-36.0)
[2021-10-29 03:18] LABS: Calcium 8.4 mg/dL (8.6-10.3); Phosphorous 3.5 mg/dL (2.7-4.5)
[2021-10-29] MEDS: *HR* Heparin 5,000 UNIT/ML VIAL SQ SCH ×3 (05:42→21:04)
[2021-10-29] MEDS: cefTRIAXone 2,000 MG in 0.9 % Sodium Chloride Mini Bag 100 ML IVPB SCH (09:40)
[2021-10-29] MEDS ORDERED: Ergocalciferol (VIT D2) 50,000 UNIT (1.25MG) CAP PO SCH (10:15)
[2021-10-29] MEDS ORDERED: calcitrioL 0.25 MCG CAPSULE PO SCH (10:15)
[2021-10-29] MEDS: Aspirin Enteric Coated 81 MG Tablet PO SCH (13:55)
[2021-10-29] MEDS: Metoprolol XL (24 HR) Succ 50 MG TAB.ER.24H PO SCH (21:04)
[2021-10-30 07:09] LABS: Calcium 9.3 mg/dL (8.6-10.3); Potassium 4.1 mEq/L (3.5-5.1)
[2021-10-30] MEDS ORDERED: Cyanocobalamin (B-12) 1,000 MCG TABLET PO SCH (09:00)
[2021-10-30] MEDS: cefTRIAXone 2,000 MG in 0.9 % Sodium Chloride Mini Bag 100 ML IVPB SCH (09:09)
[2021-10-30] MEDS: Aspirin Enteric Coated 81 MG Tablet PO SCH (09:10)
[2021-10-30] MEDS: *HR* Heparin 5,000 UNIT/ML VIAL SQ SCH (09:10)
[2021-10-30] MEDS: Metoprolol XL (24 HR) Succ 50 MG TAB.ER.24H PO SCH (09:10)
[2021-10-30 10:07] LABS: Hematocrit 31.3 % (37.5-50.1); Hemoglobin 9.6 g/dL (12.9-16.9); Mean Corpuscular HGB Conc 30.7 g/dL (31.6-35.5); Mean Corpuscular Hemoglobin 29.1 pg (28.0-33.3); Mean Corpuscular Volume 94.8 fL (83.0-100.0); Platelet Count 205 K/mcL (140-400); Red Cell Distribution Width 14.9 % (11.5-14.5); White Blood Count 9.7 K/mcL (4.3-11.1)
[2021-10-30 10:53] VITALS: BP 166/75; PULSE 85; TEMP 98.4; O2SAT 94
== END 2021-10-30 13:05 | disposition home or self-care (01) ==
LOC: 2ANU 11:00 → EMEROOARM 11:00 → SUATTDRO 14:35 → 2ANU 15:57
PROVIDERS: ADMIT Student in an Organized Health Care Education/Training Program; ATTEND Internal Medicine

== ENCOUNTER 2022-04-05 09:41 | Observation (INO) ==
[2022-04-05] MEDS ORDERED: Iopamidol - 370 500 ML MLS IVP ONE (09:46)
[2022-04-05 10:31] LABS: INR 1.2
[2022-04-05 11:08] LABS: Hemoglobin 11.7 g/dL (12.9-16.9); Mean Corpuscular HGB Conc 31.6 g/dL (31.6-35.5); Mean Corpuscular Hemoglobin 28.3 pg (28.0-33.3); Mean Corpuscular Volume 89.4 fL (83.0-100.0); Mean Platelet Volume 9.4 fL (9.4-12.4); Platelet Count 265 K/mcL (140-400); Red Blood Count 4.14 M/mcL (4.19-5.50); Red Cell Distribution Width 17.1 % (11.5-14.5)
[2022-04-05] MEDS ORDERED: Aspirin 325 MG TABLET PO ONE (11:19)
[2022-04-05 11:36] LABS: BUN/Creatinine Ratio 28 (6-26); Blood Urea Nitrogen 52 mg/dL (8-23); Calcium 9.1 mg/dL (8.6-10.3); Carbon Dioxide 31 mEq/L (23-29); Chloride 95 mEq/L (98-107); Glucose 118 mg/dL (70-105); Osmolality,Calculated 293 (280-300); Potassium 3.5 mEq/L (3.5-5.1); Sodium 134 mEq/L (136-145); Troponin I < 0.03 ng/mL (< 0.04); eGFR For African Americans 43 (> 60); eGFR For Non-African Americans 35 (> 60)
[2022-04-05 11:59] LABS: Bilirubin,Urine Negative (Negative); Blood,Urine Negative (Negative); Clarity,Urine Clear (Clear); Color,Urine Light-Yellow (Yellow); Glucose,Urine (UA) Normal (Normal); Ketones,Urine Negative (Negative); Leukocyte Esterase,Urine Negative (Negative); Nitrite,Urine Negative (Negative); Protein,Urine Negative (Neg-Trace); Specific Gravity,Urine > 1.030 (1.010-1.025); Urobilinogen,Urine Normal (Normal)
[2022-04-05] MEDS ORDERED: Naloxone 0.4 MG/ML INJ IVP PRN (13:01)
[2022-04-05] MEDS ORDERED: *HR* Heparin 5,000 UNIT/ML VIAL IVP PRN ×2 (13:59)
[2022-04-05] MEDS ORDERED: *HR* Heparin 5,000 UNIT/ML VIAL IVP ONE (13:59)
[2022-04-05] MEDS ORDERED: Heparin 25,000UNIT/250ML 1/2NS 25,000 UNIT/250 ML IV.SOLN IVC SCH (14:00)
[2022-04-06 04:48] LABS: Basophils % 0.1 %; Eosinophils % 0.3 %; Hematocrit 36.3 % (37.5-50.1); Hemoglobin 11.4 g/dL (12.9-16.9); Immature Granulocytes % 0.8 % (0-4); Lymphocytes # 1.1 K/mcL (0.6-4.6); Lymphocytes % 10.6 %; Mean Corpuscular HGB Conc 31.4 g/dL (31.6-35.5); Mean Corpuscular Volume 89.2 fL (83.0-100.0); Mean Platelet Volume 9.6 fL (9.4-12.4); Monocytes % 9.4 %; Neutrophils # 8.2 K/mcL (1.6-8.9); Platelet Count 293 K/mcL (140-400); Red Blood Count 4.07 M/mcL (4.19-5.50); Red Cell Distribution Width 17.3 % (11.5-14.5); Segmented Neutrophils % 78.8 %; White Blood Count 10.4 K/mcL (4.3-11.1)
[2022-04-06 04:52] LABS: Calcium 9.4 mg/dL (8.6-10.3); Potassium 3.4 mEq/L (3.5-5.1)
[2022-04-06 04:54] LABS: Chol/HDL Ratio 4.5 (0-4.9)
[2022-04-06 05:11] LABS: Estimated Average Glucose 105 mg/dl; Hemoglobin A1C 5.3 %
[2022-04-06] MEDS: Aspirin Enteric Coated 81 MG Tablet PO SCH (07:48)
[2022-04-06] MEDS: Cyanocobalamin (B-12) 1,000 MCG TABLET PO SCH (07:49)
[2022-04-06] MEDS: Metoprolol XL (24 HR) Succ 50 MG TAB.ER.24H PO SCH ×2 (07:49→20:49)
[2022-04-06] MEDS: hydroCHLOROthiazide 25 MG TABLET PO SCH (09:58)
[2022-04-06] MEDS: Cholecalciferol (D-3) 1,000 UNIT (25MCG) TABLET PO SCH (09:58)
[2022-04-06] MEDS ORDERED: Perflutren Lipid Microsphere 1.3 ML in 0.9 % Sodium Chloride 8.7 ML IVP PRN (11:45)
[2022-04-06 14:24] LABS: INR 1.1
[2022-04-06] MEDS ORDERED: *HR* Warfarin 2.5 MG TABLET PO ONE (18:00)
[2022-04-06] MEDS ORDERED: Warfarin perPT PO PRN (18:00)
[2022-04-06] MEDS: predniSONE 20 MG TABLET PO SCH (20:49)
[2022-04-06] MEDS ORDERED: Furosemide 40 MG TABLET PO SCH (21:00)
[2022-04-07 01:20] LABS: Basophils % 0.3 %; Eosinophils # 0.1 K/mcL (0.0-0.6); Eosinophils % 1.1 %; Hemoglobin 11.5 g/dL (12.9-16.9); Immature Granulocytes % 0.9 % (0-4); Lymphocytes # 0.6 K/mcL (0.6-4.6); Lymphocytes % 5.5 %; Mean Corpuscular HGB Conc 31.1 g/dL (31.6-35.5); Mean Platelet Volume 9.5 fL (9.4-12.4); Monocytes # 1.1 K/mcL (0.0-1.3); Monocytes % 10.6 %; Neutrophils # 8.7 K/mcL (1.6-8.9); Platelet Count 288 K/mcL (140-400); Red Blood Count 4.11 M/mcL (4.19-5.50); Red Cell Distribution Width 17.3 % (11.5-14.5); Segmented Neutrophils % 81.6 %; White Blood Count 10.6 K/mcL (4.3-11.1)
[2022-04-07 01:24] LABS: Prothrombin Time 11.4 Seconds (9.4-12.1)
[2022-04-07 01:36] LABS: Calcium 9.3 mg/dL (8.6-10.3); Magnesium 2.2 mg/dL (1.6-2.6); Potassium 4.1 mEq/L (3.5-5.1)
[2022-04-07] MEDS: Aspirin Enteric Coated 81 MG Tablet PO SCH (07:14)
[2022-04-07] MEDS: predniSONE 20 MG TABLET PO SCH (07:14)
[2022-04-07] MEDS: Cholecalciferol (D-3) 1,000 UNIT (25MCG) TABLET PO SCH (07:14)
[2022-04-07] MEDS: hydroCHLOROthiazide 25 MG TABLET PO SCH (07:14)
[2022-04-07] MEDS: Cyanocobalamin (B-12) 1,000 MCG TABLET PO SCH (07:15)
[2022-04-07] MEDS: Metoprolol XL (24 HR) Succ 50 MG TAB.ER.24H PO SCH (07:15)
[2022-04-07 10:43] VITALS: BP 159/73; PULSE 64; TEMP 97.6; O2SAT 98
[2022-04-07] MEDS ORDERED: *HR* Warfarin 5 MG TABLET PO ONE (18:00)
== END 2022-04-07 15:24 | disposition home or self-care (01) ==
LOC: EMEROOARM 09:41 → 3BNU 09:41 → SUATTDRO 13:22 → 3BNU 14:13
PROVIDERS: ADMIT Internal Medicine; ATTEND Family Medicine